=== PATIENT | male | born 1955 | race Caucasian/White ===

== ENCOUNTER 2017-01-31 07:18 | Emergency (ER) | payer OTHER | END 2017-01-31 08:07 | disposition home or self-care (01) | LOC: ER1 07:18 | DX: K02.9 Dental caries, unspecified (principal) | CPT/HCPCS: 99282 ==

== ENCOUNTER 2020-10-19 18:28 | Emergency (ER) | payer SELFPAY ==
[2020-10-20] MEDS ORDERED: COZAAR100 MG PO (13:13)
== END 2020-10-19 19:44 | disposition left against medical advice (07) ==
LOC: ER1 18:28
DX: Z53.21 Procedure and treatment not carried out due to patient leaving prior to being seen by health care provider (principal)

== ENCOUNTER 2020-10-20 11:40 | Emergency (ER) | payer MEDICARE ==
[2020-10-20] MEDS ORDERED: COZAAR100 MG PO (13:13)
== END 2020-10-20 13:27 | disposition home or self-care (01) ==
LOC: ER1 11:40
DX: I10 Essential (primary) hypertension (principal); K03.81 Cracked tooth; Z76.0 Encounter for issue of repeat prescription; M06.9 Rheumatoid arthritis, unspecified; F17.210 Nicotine dependence, cigarettes, uncomplicated
CPT/HCPCS: 93005; 99283

== ENCOUNTER → 2020-11-03 | Outpatient (CLI) | payer MEDICARE ==
[~2020-11-03] MED LIST: COZAAR100 MG PO
== END ==
LOC: KOH-I 11:27
DX: M25.552 Pain in left hip (principal); M16.12 Unilateral primary osteoarthritis, left hip; M89.8X8 Other specified disorders of bone, other site
CPT/HCPCS: 73502

== ENCOUNTER 2021-03-04 10:03 | Emergency (ER) | payer MEDICARE | END 2021-03-04 11:20 | disposition home or self-care (01) | LOC: ER1 10:03 | DX: S30.861A Insect bite (nonvenomous) of abdominal wall, initial encounter (principal); F17.200 Nicotine dependence, unspecified, uncomplicated; I10 Essential (primary) hypertension; W57.XXXA Bitten or stung by nonvenomous insect and other nonvenomous arthropods, initial encounter | CPT/HCPCS: 99281 ==

== ENCOUNTER 2021-03-28 13:31 | Emergency (ER) | payer MEDICARE | END 2021-03-28 17:00 | disposition home or self-care (01) | LOC: ER1 13:31 | DX: M25.552 Pain in left hip (principal); F17.200 Nicotine dependence, unspecified, uncomplicated; Z88.8 Allergy status to other drugs, medicaments and biological substances; Z20.822 Contact with and (suspected) exposure to COVID-19 | CPT/HCPCS: 99283; U0002 ==

== ENCOUNTER 2021-10-09 18:43 | Emergency (ER) | payer MEDICARE ==
[2021-10-09 19:36] LABS: RED BLOOD COUNT 5.6 M/UL (4.20-5.50); WHITE BLOOD COUNT 11.2 K/UL (4.5-11.0)
== END 2021-10-09 21:30 | disposition home or self-care (01) ==
LOC: ER1 18:43
PROVIDERS: Nurse Practitioner
DX: U07.1 COVID-19 (principal); N17.9 Acute kidney failure, unspecified; R53.1 Weakness; I10 Essential (primary) hypertension; F17.210 Nicotine dependence, cigarettes, uncomplicated
CPT/HCPCS: 0240U; 71045; 80053; 81001; 82550; 82553; 83874; 84484; 85025; 93005; 99285

== ENCOUNTER 2021-12-24 08:56 | Emergency (ER) | payer MEDICARE ==
[2021-12-24 09:44] LABS: HEMOGLOBIN 16.3 gm/dl (14.0-17.5); RED BLOOD COUNT 5.91 M/UL (4.20-5.50); WHITE BLOOD COUNT 10.8 K/UL (4.5-11.0)
== END 2021-12-24 12:58 | disposition home or self-care (01) ==
LOC: ER1 08:56
PROVIDERS: Family Medicine
DX: R53.1 Weakness (principal); R05.9 Cough, unspecified; I12.9 Hypertensive chronic kidney disease with stage 1 through stage 4 chronic kidney disease, or unspecified chronic kidney disease; N18.9 Chronic kidney disease, unspecified; F17.200 Nicotine dependence, unspecified, uncomplicated; Z79.899 Other long term (current) drug therapy
CPT/HCPCS: 36600; 71045; 80053; 82550; 82553; 82803; 83605; 83690; 83735; 83880; 84439; 84443; 84484; 85025; 85610; 93005; 99285